=== PATIENT | female | born 1965 | race Caucasian/White ===

== ENCOUNTER → 2016-06-23 | Outpatient (CLI) | payer OTHER ==
[~2016-06-23] MED LIST: AMBIEN 5MG TABLE5 MG PO; BETAMETHASONE DIPROPIONATE; CELEXA40 MG PO; CLARITIN 1010 MG/TAB PO; CLONAZEPAM0.5 MG PO; ESCITALOPRAM; ESTRADIOL1 MG PO; IBUPROFEN200 M1 PO; LISINOPRIL5 MG PO; METHIMAZOLE10 MG PO; MULTIPLE VITAMI1 TAB PO; NAPROSYN500 MG PO; NORCO 325 MG-7.1 TAB PO; PRINIVIL20 MG PO; REQUIP 0.5MG0.5 MG PO; allergy med
== END ==
LOC: MC.RAD 16:49
DX: Z12.31 Encounter for screening mammogram for malignant neoplasm of breast (principal); D24.2 Benign neoplasm of left breast; D24.1 Benign neoplasm of right breast

== ENCOUNTER → 2017-12-03 | Outpatient (REF) | LOC: ZLAB.WCH 11:18 | DX: Z01.89 Encounter for other specified special examinations (principal) ==

== ENCOUNTER 2019-02-02 11:20 | Emergency (ER) | payer BC ==
[~2019-02-02] VITALS: Ht 160 cm; Wt 115.5 kg
[2019-02-02 11:29] VITALS: TEMP 97.5
[2019-02-02] MEDS ORDERED: COSENTYX P150 MG/1 M SQ (12:22)
[2019-02-02] MEDS ORDERED: LYRICA 150MG C150 MG PO (12:23)
[2019-02-02] MEDS ORDERED: CYMBALTA 30MG30 MG PO (12:25)
[2019-02-02 12:54] LABS: BASO # 0.1 (0.0-0.2); BASO % 0.5 % (0.0-2.0); EOS # 0.4 (0.0-0.7); EOS % 3.5 % (0-4.0); GRAN # 6.8 (1.4-6.5); GRAN % 66.8 % (42.2-75.2); HEMATOCRIT 40.5 % (37.0-47.0); HEMOGLOBIN 12.7 g/dl (12.5-16.0); MEAN CELL VOLUME 89 fl (80.0-100.0); MEAN CORPUSCULAR HEMOGLOBIN 28 pg (27.0-31.0); MEAN CORPUSCULAR HGB CONC 31 g/dl (33.0-37.0); MEAN PLATELET VOLUME 9.8 fl (7.4-10.4); MONO # 0.8 (0.1-0.6); MONO % 8.3 % (1.7-9.3); PLATELET COUNT 284 K/mm3 (130-400); RED BLOOD COUNT 4.57 M/mm3 (4.10-5.30); REDCELL DISTRIBUTION WIDTH-CV 14.2 % (11.5-14.5)
[2019-02-02 13:04] LABS: BLOOD UREA NITROGEN 16 mg/dL (7-17); CREATININE, serum 0.74 (0.52-1.25); GLUCOSE 100 mg/dL (74-106)
[2019-02-02 13:05] LABS: ACETAMINOPHEN < 10 ug/mL (10-30); ALANINE AMINOTRANSFERASE 41 U/L (9-52); ALBUMIN 3.9 gm/dL (3.5-5.0); ALKALINE PHOSPHATASE 103 U/L (50-136); ANION GAP 7 mmol/L (7-16); AST,SGOT 44 U/L (15-37); BILIRUBIN,TOTAL 0.4 mg/dL (0.0-1.0); CALCIUM 9.5 mg/dL (8.4-10.2); CARBON DIOXIDE 31 mmol/L (22-30); CHLORIDE 105 mmol/L (98-107); POTASSIUM 4.4 mmol/L (3.4-5.0); SALICYLATE < 1.0 mg/dL; SODIUM 143 mmol/L (137-145); TOTAL PROTEIN 7.8 gm/dL (6.4-8.2)
[2019-02-02 13:35] LABS: TSH w REFLEX 0.445 uIU/mL (0.465-4.680)
[2019-02-02 15:10] LABS: COLLECTION METHOD CLEAN CATCH
[2019-02-02 15:26] LABS: TRICYCLIC ANTIDEPRESS URINE NEGATIVE
[2019-02-02 15:55] LABS: MUCOUS Present /lpf; PH 6 (5-8); URINE APPEARANCE Cloudy; URINE BACTERIA Rare /hpf; URINE BILIRUBIN Negative (NEGATIVE); URINE BLOOD Negative (NEGATIVE); URINE COLOR Yellow; URINE GLUCOSE Negative (NEGATIVE); URINE KETONE Negative (NEGATIVE); URINE LEUKOCYTE ESTERASE 2+ (NEGATIVE); URINE NITRATE Negative (NEGATIVE); URINE PROTEIN(semi-quant) 1+ (NEGATIVE); URINE UROBILINOGEN Negative (NEGATIVE)
[2019-02-02 19:10] VITALS: BP 142/66; PULSE 73
== END 2019-02-02 19:10 | disposition home or self-care (01) ==
LOC: COL.ER 11:20
PROVIDERS: Emergency Medicine
DX: R41.0 Disorientation, unspecified (principal); R45.851 Suicidal ideations

== ENCOUNTER 2020-04-28 16:45 | Inpatient (IN) | payer BC ==
[~2020-04-28] VITALS: Ht 160 cm; Wt 112.3 kg
[~2020-04-28 16:45] MED LIST changes: +COSENTYX P150 MG/1 M SQ; +CYMBALTA 30MG30 MG PO; +LYRICA 150MG C150 MG PO
[2020-04-28] MEDS ORDERED: ALBUTEROL0.83 MG/ML IH (17:46)
[2020-04-28 18:06] LABS: ARTERIAL BLD GAS O2 SATURATION 92.1 % (92-100); ARTERIAL BLD GAS TCO2 CT 24.9; ARTERIAL BLOOD GAS BASE EXCESS 0.6 (-2-2); ARTERIAL BLOOD GAS HCO3 23.9 meq/L (22-26); ARTERIAL BLOOD GAS PCO2 33.8 mmHg (35-45); ARTERIAL BLOOD GAS PO2 64.1 mmHg (80-100); ARTERIAL BLOOD GAS pH 7.47 (7.35-7.45)
[2020-04-28 18:45] LABS: HEMATOCRIT 39.1 % (37.0-47.0); HEMOGLOBIN 12.1 g/dl (12.5-16.0); MEAN CELL VOLUME 83 fl (80.0-100.0); MEAN CORPUSCULAR HEMOGLOBIN 26 pg (27.0-31.0); MEAN CORPUSCULAR HGB CONC 31 g/dl (33.0-37.0); MEAN PLATELET VOLUME 10.5 fl (7.4-10.4); PLATELET COUNT 211 K/mm3 (130-400); RED BLOOD COUNT 4.72 M/mm3 (4.10-5.30); REDCELL DISTRIBUTION WIDTH-CV 15.4 % (11.5-14.5)
[2020-04-28 18:53] LABS: ALBUMIN 4.2 gm/dL (3.5-5.0); BILIRUBIN,TOTAL 0.3 mg/dL (0.0-1.0); CREATININE, serum 0.85 (0.52-1.25); POTASSIUM 4.1 mmol/L (3.4-5.0); TOTAL PROTEIN 8.6 gm/dL (6.4-8.2)
[2020-04-28 19:18] LABS: BAND 7 % (0-10); NEUTROPHILS 73 % (42.0-75.2)
[2020-04-28 19:19] LABS: LYMPHOCYTE 13 % (20.0-51.0); MICROCYTOSIS 1+; PLATELET ESTIMATE NORMAL (NORMAL)
[2020-04-28] MEDS ORDERED: XALATAN EYE DROPS OU (20:47)
[2020-04-28] MEDS ORDERED: PRIL40 PO (20:48)
[2020-04-28] MEDS ORDERED: CYMBALTA 30MG30 MG PO (20:51)
[2020-04-28] MEDS ORDERED: TALTZ AUTO80 MG/1 ML SQ (20:53)
[2020-04-28] MEDS ORDERED: OTEZLA PO (20:54)
[2020-04-29] VITALS (8 sets, daily range): BP systolic 132–168; BP diastolic 70–80; PULSE 60–74; TEMP 96.9–98.8
[2020-04-30 05:21] VITALS: BP 145/85; PULSE 62; TEMP 98.3
[2020-04-30 07:16] LABS: HEMOGLOBIN 11.2 g/dl (12.5-16.0); MEAN CELL VOLUME 83 fl (80.0-100.0); MEAN CORPUSCULAR HEMOGLOBIN 26 pg (27.0-31.0); MEAN CORPUSCULAR HGB CONC 31 g/dl (33.0-37.0); MEAN PLATELET VOLUME 10.8 fl (7.4-10.4); PLATELET COUNT 143 K/mm3 (130-400); RED BLOOD COUNT 4.32 M/mm3 (4.10-5.30); REDCELL DISTRIBUTION WIDTH-CV 15.1 % (11.5-14.5)
[2020-04-30 07:25] LABS: CREATININE, serum 0.78 (0.52-1.25); HEMATOCRIT 35.8 % (37.0-47.0); POTASSIUM 4.3 mmol/L (3.4-5.0)
[2020-04-30 07:51] LABS: BAND 28 % (0-10); LYMPHOCYTE 8 % (20.0-51.0); NEUTROPHILS 61 % (42.0-75.2); PLATELET ESTIMATE NORMAL (NORMAL)
[2020-04-30 07:52] LABS: ANISOCYTOSIS 1+; HYPOCHROMIA 1+
[2020-04-30 09:19] VITALS: BP 142/82; PULSE 75; TEMP 98.4
[2020-04-30] MEDS ORDERED: PROAIR HFA0.09 MG/AC IH (12:39)
[2020-04-30] MEDS ORDERED: DECADRON6 MG PO (12:44)
[2020-04-30 12:58] VITALS: BP 137/79; PULSE 67; TEMP 98.1
== END 2020-04-30 17:15 | disposition home or self-care (01) | DRG 177 ==
LOC: COL.ER 16:45 → PEDS 20:03 → COL.ER 20:03 → PEDS 20:03
PROVIDERS: Emergency Medicine; Physician Assistant; ADMIT Student in an Organized Health Care Education/Training Program
DX: U07.1 COVID-19 (principal); J96.01 Acute respiratory failure with hypoxia; R65.10 Systemic inflammatory response syndrome (SIRS) of non-infectious origin without acute organ dysfunction; R19.7 Diarrhea, unspecified; R74.01 Elevation of levels of liver transaminase levels; I10 Essential (primary) hypertension; L40.50 Arthropathic psoriasis, unspecified; D64.9 Anemia, unspecified; E66.01 Morbid (severe) obesity due to excess calories; J35.1 Hypertrophy of tonsils; G25.81 Restless legs syndrome; F32.9 Major depressive disorder, single episode, unspecified
CPT/HCPCS: 99223-AI; 99233-AI; 99239; J0456; J0696; J1100; J1650; J1815; J1885; J2405; J7030; J7050; J8540

== ENCOUNTER 2023-08-05 09:39 | Inpatient (IN) | payer BC ==
[2023-08-05] VITALS (7 sets, daily range): BP systolic 104–165; BP diastolic 59–73; PULSE 101–108; TEMP 98.5–101.7
[~2023-08-05] VITALS: Ht 157.5 cm; Wt 118.4 kg
[~2023-08-05 09:39] MED LIST changes: +00186-0370-20 IH; +ALBUTEROL0.83 MG/ML IH; +ASPIRIN E.C. 8181 MG PO; +BUSPAR5 MG PO; +CALCIPOTRIENE0.0051 TP; +DECADRON6 MG PO; +DOXYCYCLINE 10100 MG PO; +FLONASEALLERGY NS; +GLUCOPHAGE500 MG/TAB PO; +IRON TABLETS325 MG PO; +NORCO 325 MG-51 TAB PO; +NORVASC 5MG5 MG/TAB PO; +OTEZLA PO; +PREDNISONE20 MG PO; +PRIL40 PO; +PRINIVIL40 MG PO; +PROAIR HFA0.09 MG/AC IH; +SINGULAIR 110 MG/TAB PO; +SPIRIVA RESPIMAT4 GM IH; +TALTZ AUTO80 MG/1 ML SQ; +TEMOVATE50TS TOP; +TREMFYA100 MG/1 M SQ; +TRIAMCINOLONE AC0.13 TOP; +XALATAN EYE DROPS OU
[2023-08-05] MEDS ORDERED: NS 1,000 ML IV ONE ×3 (10:00→11:15)
[2023-08-05 10:27] LABS: COLLECTION METHOD CLEAN CATCH
[2023-08-05 10:35] LABS: URINE APPEARANCE CLOUDY (CLEAR/HAZY); URINE BLOOD NEGATIVE (NEGATIVE); URINE COLOR Dark Yellow (YELLOW); URINE GLUCOSE NEGATIVE (NEGATIVE); URINE KETONE NEGATIVE (NEGATIVE); URINE NITRATE NEGATIVE (NEGATIVE); URINE PROTEIN(semi-quant) 1+ (NEGATIVE)
[2023-08-05 10:39] LABS: HEMOGLOBIN 10.5 g/dl (12.5-16.0); MEAN CELL VOLUME 91 fl (80.0-100.0); MEAN CORPUSCULAR HEMOGLOBIN 29 pg (27-31); MEAN CORPUSCULAR HGB CONC 32 g/dl (33.0-37.0); MEAN PLATELET VOLUME 10.4 fl (7.4-10.4); PLATELET COUNT 169 K/mm3 (130-400); RED BLOOD COUNT 3.59 M/mm3 (4.10-5.30); REDCELL DISTRIBUTION WIDTH-CV 17.2 % (11.5-14.5)
[2023-08-05 10:40] LABS: HEMATOCRIT 32.7 % (37.0-47.0)
[2023-08-05] MEDS ORDERED: Ondansetron 4 MG/2 ML VIAL IV ONE (10:45)
[2023-08-05] MEDS ORDERED: fentaNYL 50 MCG/ML 2 ML VIAL IV ONE (10:45)
[2023-08-05 10:52] LABS: MUCOUS PRESENT (NOT PRESENT); URINE BACTERIA MODERATE /hpf (NONE SEEN); URINE RBC 0-2 /hpf (0-2)
[2023-08-05 10:58] LABS: ALBUMIN 3.1 gm/dL (3.5-5.0); BILIRUBIN,TOTAL 0.3 mg/dL (0.2-1.2); CALCIUM 9.3 mg/dL (8.4-10.2); CREATININE, serum 0.81 mg/dL (0.57-1.11); POTASSIUM 3.4 mmol/L (3.5-4.5)
[2023-08-05] MEDS ORDERED: NS 250 ML IV ONE (11:15)
[2023-08-05] MEDS ORDERED: SEMAGLUTIDE (11:55)
[2023-08-05] MEDS ORDERED: [UNRECOGNIZED DRUG - OTHER] (11:55)
[2023-08-05 11:57] LABS: ANISOCYTOSIS 1+; BAND 8 % (0-10); BASOPHIL 6 % (0-2); EOSINOPHIL 8 % (0-4); HYPOCHROMIA 1+; LYMPHOCYTE 54 % (20.0-51.0); NEUTROPHILS 6 % (42.0-75.2); NUCLEATED RED BLOOD CELL 2 (0-6); PLATELET ESTIMATE NORMAL (NORMAL)
[2023-08-05] MEDS ORDERED: NS 1,000 ML IV SCH ×2 (13:17→14:00)
[2023-08-05] MEDS ORDERED: Pantoprazole 40 MG in NS 10 ML IV SCH (13:25)
[2023-08-05] MEDS ORDERED: Ondansetron 4 MG/2 ML VIAL IV PRN (13:30)
[2023-08-05] MEDS ORDERED: Acetaminophen 325 MG TAB PO PRN (13:30)
[2023-08-05] MEDS ORDERED: Ferrous Sulfate 325 MG TAB PO SCH (13:30)
[2023-08-05] MEDS ORDERED: Polyethylene Glycol 3350 17 GM PDS PO PRN (13:30)
[2023-08-05] MEDS ORDERED: Vancomycin 1.75 GM,Special Dose/Pharmacy Prepared 1.75 GM in NS 500 ML IV SCH (14:00)
[2023-08-05] MEDS ORDERED: Vancomycin 2 GM,Special Dose/Pharmacy Prepared 2 GM in NS 500 ML IV ONE (14:30)
[2023-08-05] MEDS ORDERED: ZOFRAN8 MG PO (14:57)
[2023-08-05] MEDS ORDERED: NEURONTIN300 MG/CAP PO (14:57)
[2023-08-05] MEDS ORDERED: ZYLOPRIM 300MG300 MG PO (14:58)
[2023-08-05] MEDS ORDERED: ZOVIRAX400 MG PO (14:58)
[2023-08-05] MEDS ORDERED: ROXICODONE 55 MG/TAB PO (15:00)
[2023-08-05] MEDS ORDERED: Dextrose 50% Water 25 GM/50 ML SYRINGE IV PRN (15:15)
[2023-08-05] MEDS ORDERED: Dextrose (Glucose) 15 GM (4 x 3.75 GM) Chewable TABLET PACK PO PRN (15:15)
[2023-08-05] MEDS ORDERED: Glucagon 1 MG VIAL IM PRN (15:15)
--- NOTE | 2023-08-05 15:17 | NUR ---
PATIENT ADMITTED TO MEDICAL UNIT AT THIS TIME. ADMISSION INTAKE AND ASSESSMENT COMPLETED. MED REC, PHARMACY, AND ALLERGY LIST UPDATED. PATIENT ORIENTED TO ROOM. IVF INFUSING. PATIENT COMPLAINS OF MILD STERNAL PAIN. DENIES ANY NEEDS AT THIS TIME. WILL CONTINUE TO MONITOR.
[2023-08-05] MEDS ORDERED: Insulin Aspart (NovoLOG) SQ SCH (17:00)
[2023-08-05] MEDS ORDERED: Formoterol 20 MCG,Budesonide 0.5 MG IH SCH (19:00)
[2023-08-05] MEDS ORDERED: oxyCODONE 5 MG TAB PO PRN (20:30)
[2023-08-05] MEDS ORDERED: Montelukast 10 MG TAB PO SCH (21:00)
[2023-08-05] MEDS ORDERED: Pregabalin 150 MG CAP PO SCH (21:00)
[2023-08-05] MEDS ORDERED: busPIRone 5 MG TAB PO SCH (21:00)
[2023-08-05] MEDS ORDERED: Docusate Sodium 100 MG CAP PO SCH (21:00)
[2023-08-05] MEDS ORDERED: Latanoprost 0.005% Ophth Soln 2.5 ML BOTTLE OP SCH (21:00)
[2023-08-05] MEDS ORDERED: DULoxetine 30 MG CAP PO SCH (21:00)
[2023-08-05] MEDS ORDERED: rOPINIRole 0.5 MG TAB PO SCH (21:00)
--- NOTE | 2023-08-05 23:58 | NUR ---
PT ALERT AND ORIENTED, AND FMAILY AT THE BEDSIDE. C/O DRYNESS OF MOUTH, MOUTH MOISTERIZER GIVEN WITH INSTANT RELIEF. VERY PLEASANT WOMAN AND GREAT HISTORIAN, PER REPORT HASNT TAKEN ANY OF HER DAYTIME MEDS R/T N/V, THIS HAS SUBSIDED SINCE ADMISSION TO THE FLOOR. VSS, BP RUNNING SOFT. ASSESSED, RT CALLED TO BLEED IN O2 TO CPAP R/T INSUFFICIENT OXYGENATION. NOW ON 3L BLEED IN SAT AT 94%. DEV TEMP AROUND 0000, TYLENOL GIVEN.WILL REASSESS IN AN HOUR. INT TO L WRIST PATENT. ON NEUTROPENIC PRECAUTUIONS. NON ACCESSIBLE PORTACATH TO LEFT CHEST. ON 2 LITERS NC, BASELINE ROOM AIR. NO FURTHER NEED EXPRESSED AT THIS TIME. CALL LIGHT WITHIN REACH.
[2023-08-06] VITALS (11 sets, daily range): BP systolic 100–151; BP diastolic 59–75; PULSE 86–112; TEMP 98.2–100.9
--- NOTE | 2023-08-06 00:07 | NUR ---
PT PLACED ON 3L BLEED IN WITH HOME CPAP.
[2023-08-06] MEDS ORDERED: Vancomycin 1.5 GM,Special Dose/Pharmacy Prepared 1.5 GM in NS 250 ML IV SCH (02:30)
[2023-08-06 06:43] LABS: MEAN CELL VOLUME 92 fl (80.0-100.0); MEAN CORPUSCULAR HGB CONC 31 g/dl (33.0-37.0); MEAN PLATELET VOLUME 10.1 fl (7.4-10.4); PLATELET COUNT 135 K/mm3 (130-400); RED BLOOD COUNT 3.28 M/mm3 (4.10-5.30); REDCELL DISTRIBUTION WIDTH-CV 17.3 % (11.5-14.5)
[2023-08-06 06:55] LABS: HEMOGLOBIN 9.4 g/dl (12.5-16.0); MEAN CORPUSCULAR HEMOGLOBIN 29 pg (27-31)
[2023-08-06 07:01] LABS: ALBUMIN 2.6 gm/dL (3.5-5.0); BILIRUBIN,TOTAL 0.4 mg/dL (0.2-1.2); CALCIUM 8.4 mg/dL (8.4-10.2); CREATININE, serum 0.71 mg/dL (0.57-1.11); POTASSIUM 3.3 mmol/L (3.5-4.5); TOTAL PROTEIN 5.3 gm/dL (6.2-8.1)
--- NOTE | 2023-08-06 08:00 | NUR ---
Patient sleeping in bed, easily awakened with verbal command. A&Ox3. VSS 2L NC O2. IV CDI. Reports nausea, medication given as requested. Call light within reach.
[2023-08-06 08:22] LABS: ANISOCYTOSIS 1+; BAND 38 % (0-10); EOSINOPHIL 2 % (0-4); LYMPHOCYTE 11 % (20.0-51.0); METAMYELOCYTE 2 % (0-0); NEUTROPHILS 35 % (42.0-75.2); PLATELET ESTIMATE NORMAL (NORMAL)
[2023-08-06] MEDS ORDERED: Potassium Bicarbonate/Citrate 20 MEQ Effervescent TAB PO SCH (08:26)
[2023-08-06] MEDS ORDERED: DULoxetine 60 MG CAP PO SCH (09:00)
[2023-08-06] MEDS ORDERED: Tiotropium 2.5 MCG Respimat MDI IH SCH (09:00)
[2023-08-06] MEDS ORDERED: Loratadine 10 MG TAB PO SCH (09:00)
[2023-08-06] MEDS ORDERED: Fluticasone Nasal 50 MCG/Spray 16 GM BOTTLE NS SCH (09:00)
--- NOTE | 2023-08-06 11:52 | NUR ---
SW met with patient to complete an intake. Patient shared that she was currently in chemo and verified that her PCP is Dr Hendrix and pharmacy of choice is [facility]. Patient informed SW that she resides in her home with spouse Flavio Tai ([phone]) and independent with ADLs and current DMEs is CPAP. Patient is anticiapting discharge back to her home. Discharge plan: tbd
--- NOTE | 2023-08-06 21:33 | NUR ---
PT ALERT AND ORIENTED X3. WAS C/O NAUSEA UPON ENTERING THE ROOM. HAS BEEN NAUSEOUS MOST OF THE DAY AND NOT ABLE TO EAT MUCH. SLIGHTLY PALE, FEBRILE. MEDICATED PER EMAR AND TO TREAT ELEVATED TEMP.ASSESSED, VSS. SITTING UP IN RECLINER. DOES NOT WANT ANYTHING ELSE TO EAT. CALL LIGHT WITHIN REACH. DENIES NEED FURTHER.
[2023-08-07] VITALS (13 sets, daily range): BP systolic 100–134; BP diastolic 67–78; PULSE 80–103; TEMP 98–100.3
[2023-08-07 06:43] LABS: HEMOGLOBIN 10.4 g/dl (12.5-16.0); MEAN CELL VOLUME 89 fl (80.0-100.0); MEAN CORPUSCULAR HEMOGLOBIN 29 pg (27-31); MEAN CORPUSCULAR HGB CONC 33 g/dl (33.0-37.0); MEAN PLATELET VOLUME 10.5 fl (7.4-10.4); PLATELET COUNT 147 K/mm3 (130-400); RED BLOOD COUNT 3.55 M/mm3 (4.10-5.30); REDCELL DISTRIBUTION WIDTH-CV 17.3 % (11.5-14.5)
[2023-08-07 06:50] LABS: HEMATOCRIT 31.7 % (37.0-47.0)
[2023-08-07 07:18] LABS: ALBUMIN 2.7 gm/dL (3.5-5.0); BILIRUBIN,TOTAL 0.4 mg/dL (0.2-1.2); CREATININE, serum 0.7 mg/dL (0.57-1.11); POTASSIUM 3.8 mmol/L (3.5-4.5); TOTAL PROTEIN 5.8 gm/dL (6.2-8.1)
[2023-08-07 07:48] LABS: ANISOCYTOSIS 1+; BAND 19 % (0-10); EOSINOPHIL 2 % (0-4); LYMPHOCYTE 7 % (20.0-51.0); NEUTROPHILS 59 % (42.0-75.2); PLATELET ESTIMATE NORMAL (NORMAL)
--- NOTE | 2023-08-07 10:20 | NUR ---
PT LAYING IN BED UPON ENTERING. ASSESSMENT DONE, MEDS GIVEN BY KOURTNEY STUDENT WITH INSTRUCTOR. PT REPORTS GENERALIZED BODY PAIN AND GIVEN PRN. PT ON 2L NASAL CANNULA, FINE CRACKLES HEARD TO RIGHT LOWER LOBE. BANDAID TO LEFT CHEST PORT FROM PREVIOUS ACCESS. PT DENIES NEEDS AT THIS TIME. BED IN LOWEST POSITION, CALL LIGHT IN REACH.
--- NOTE | 2023-08-07 12:40 | NUR ---
PVS HEARD PER NORMAN INSTRUCTOR. DR OTERO NOTIFIED, 12 LEAD AND TELEMETRY ORDERED. PT REPORTS NAUSEA AND GIVEN ZOFRAN. TYLENOL PULLED FOR 99.5 TEMP, PT WANTS TO WAIT ON THIS UNITL NAUSEA IMPROVES. PT DENIES NEEDS AT THIS TIME. BED IN LOWEST POSITION, CALL LIGHT IN REACH.
--- NOTE | 2023-08-07 19:00 | NUR ---
PATIENT RESTING IN BED WITH FAMILY MEMBER AT BEDSIDE WITH NO ACUTE DISTRESS NOTED. PATIENT ON 2 LITERS OF OXYGEN VIA NC. INT TO LEFT HAND WITH NO COMPLICATIONS NOTED. PATIENT DENIES ANY NEEDS AT THIS TIME. PATIENT CARE ASSUMED FROM LISA SWARTZ. BED IN LOW POSITION WITH WHEELS LOCKED WITH RAILS UP X3 AND CALL LIGHT WITHIN REACH.
[2023-08-07] MEDS ORDERED: Doxycycline Monohydrate 100 MG CAP PO SCH (21:00)
--- NOTE | 2023-08-07 21:30 | NUR ---
PATIENT RESTING IN BED WITH CPAP ON WITH TV OFF WITH NO FAMILY PRESENT WITH NO ACUTE DISTRESS NOTED. PATIENT ON 2 LITERS OF OXYGEN BLEEDED INTO CPAP. PATIENT C/O PAIN. PATIENT RATED PAIN 4-5 ON SCALE OF 0 TO 10. ROXICODONE GIVEN PER MD ORDER. PATIENT REQUESTED ICE AND WATER. BOTH GIVEN. ASSESSMENT AND MEDICATION ADMINISTRATION COMPLETED. PATIENT TOELRATED WELL. ALL NEEDS MET. BED IN LOW POSITION WITH WHEELS LOCKED WITH RAILS UP X3 AND CALL LIGHT WITHIN REACH.
[2023-08-08 00:30] VITALS: BP_SYST 134
[2023-08-08 03:39] VITALS: BP 102/69; PULSE 88; TEMP 98.8
[2023-08-08 04:05] VITALS: BP_SYST 102
[2023-08-08 06:42] LABS: HEMOGLOBIN 10.2 g/dl (12.5-16.0); MEAN CELL VOLUME 89 fl (80.0-100.0); MEAN CORPUSCULAR HEMOGLOBIN 29 pg (27-31); MEAN CORPUSCULAR HGB CONC 32 g/dl (33.0-37.0); MEAN PLATELET VOLUME 10.3 fl (7.4-10.4); PLATELET COUNT 162 K/mm3 (130-400); RED BLOOD COUNT 3.57 M/mm3 (4.10-5.30); REDCELL DISTRIBUTION WIDTH-CV 17.3 % (11.5-14.5)
[2023-08-08 06:50] LABS: HEMATOCRIT 31.7 % (37.0-47.0)
[2023-08-08 07:01] LABS: ALBUMIN 2.6 gm/dL (3.5-5.0); BILIRUBIN,TOTAL 0.3 mg/dL (0.2-1.2); CALCIUM 8.7 mg/dL (8.4-10.2); CREATININE, serum 0.75 mg/dL (0.57-1.11); POTASSIUM 3.6 mmol/L (3.5-4.5); TOTAL PROTEIN 5.8 gm/dL (6.2-8.1)
[2023-08-08 07:29] LABS: ANISOCYTOSIS 1+; BAND 23 % (0-10); EOSINOPHIL 1 % (0-4); LYMPHOCYTE 2 % (20.0-51.0); METAMYELOCYTE 1 % (0-0); NEUTROPHILS 63 % (42.0-75.2); PLATELET ESTIMATE NORMAL (NORMAL)
[2023-08-08 07:30] VITALS: BP 116/75; PULSE 98; TEMP 98.6
[2023-08-08 08:30] VITALS: BP_SYST 116
--- NOTE | 2023-08-08 10:06 | NUR ---
Patient alert and oriented x4. Shift assessment complete. Reports pain 4/10, PRN Tylenol administered and ineffective. PRN Roxicodone administered. IV site to left hand noted to have redness and patient reports pain with flushes. Site discontinued and a new site initiated to right forearm with a 22g IV. Patient tolerating activity at baseline. Ate 50% of breakfast, reports this is the usual amount she can tolerate. Call light within reach, all needs met at this time.
[2023-08-08] MEDS ORDERED: LEVAQUIN 750MG750 M1 PO (10:21)
[2023-08-08] MEDS ORDERED: DOXYCYCLINE HY100 MG PO (10:22)
--- NOTE | 2023-08-08 10:58 | NUR ---
D: Initial vist: Industrial Tractor Driver stopped by room on rounds. Pt was sitting on the side of the bed, content. A: Pt is feeling better. Pt has a good support system at home and in the community. Right now no needs. Pt appreciated the visit. P: Industrial Tractor Driver informed pt that if she needed anything from the inclusion teacher area to let her nurse know. Industrial Tractor Driver will follow up as needed.
--- NOTE | 2023-08-08 12:27 | NUR ---
Discharge instructions discussed with patient including follow-up appointments, new/discontinued medications, and education packets. Patient verbalized understanding. IV discontinued to right forearm with no complications. Telemetry off. Patient escorted out by staff and family via wheelchair.
== END 2023-08-08 12:30 | disposition home or self-care (01) | DRG 871 ==
LOC: COL.ER 09:39 → MEDICAL 13:19
PROVIDERS: Personal Emergency Response Attendant; ADMIT Internal Medicine
DX: A41.9 Sepsis, unspecified organism (principal); J18.9 Pneumonia, unspecified organism; C85.90 Non-Hodgkin lymphoma, unspecified, unspecified site; E87.20 Acidosis, unspecified; Z68.42 Body mass index [BMI] 45.0-49.9, adult; I10 Essential (primary) hypertension; L40.9 Psoriasis, unspecified; E11.9 Type 2 diabetes mellitus without complications; D70.1 Agranulocytosis secondary to cancer chemotherapy; T45.1X5A Adverse effect of antineoplastic and immunosuppressive drugs, initial encounter; E87.6 Hypokalemia; G89.29 Other chronic pain; F32.A Depression, unspecified; Z20.822 Contact with and (suspected) exposure to COVID-19; G47.33 Obstructive sleep apnea (adult) (pediatric); E66.01 Morbid (severe) obesity due to excess calories; J45.909 Unspecified asthma, uncomplicated; E06.3 Autoimmune thyroiditis; Z88.0 Allergy status to penicillin; Z88.2 Allergy status to sulfonamides; Z88.8 Allergy status to other drugs, medicaments and biological substances; Z90.710 Acquired absence of both cervix and uterus; Z90.49 Acquired absence of other specified parts of digestive tract; Z79.899 Other long term (current) drug therapy; Z79.82 Long term (current) use of aspirin; Z99.89 Dependence on other enabling machines and devices; Z23 Encounter for immunization
CPT/HCPCS: A9270; C9113; J0780; J1447; J1650; J1815; J1956; J2405; J3010; J3370; J7030; J7040; J7050

== ENCOUNTER 2023-08-09 01:30 | Inpatient (IN) | payer BC ==
[~2023-08-09] VITALS: Ht 160 cm; Wt 114.8 kg
[2023-08-09] VITALS (10 sets, daily range): BP systolic 110–1110; BP diastolic 63–86; PULSE 95–118; TEMP 97.4–98.6
[~2023-08-09 01:30] MED LIST changes: +DOXYCYCLINE HY100 MG PO; +LEVAQUIN 750MG750 M1 PO; +NEURONTIN300 MG/CAP PO; +ROXICODONE 55 MG/TAB PO; +SEMAGLUTIDE; +ZOFRAN8 MG PO; +ZOVIRAX400 MG PO; +ZYLOPRIM 300MG300 MG PO; +[UNRECOGNIZED DRUG - OTHER]
[2023-08-09] MEDS ORDERED: methylPREDNISolone Sod Succ 125 MG/2 ML VIAL IV ONE (01:45)
[2023-08-09 01:57] LABS: MEAN CELL VOLUME 93 fl (80.0-100.0); MEAN CORPUSCULAR HGB CONC 31 g/dl (33.0-37.0); MEAN PLATELET VOLUME 10.8 fl (7.4-10.4); PLATELET COUNT 188 K/mm3 (130-400); RED BLOOD COUNT 3.42 M/mm3 (4.10-5.30); REDCELL DISTRIBUTION WIDTH-CV 17.7 % (11.5-14.5)
[2023-08-09 01:58] LABS: HEMATOCRIT 31.9 % (37.0-47.0); HEMOGLOBIN 9.9 g/dl (12.5-16.0); MEAN CORPUSCULAR HEMOGLOBIN 29 pg (27-31)
[2023-08-09 02:03] LABS: COLLECTION METHOD CLEAN CATCH
[2023-08-09 02:20] LABS: ALANINE AMINOTRANSFERASE 29 U/L (0-55); ALBUMIN 2.5 gm/dL (3.5-5.0); ALKALINE PHOSPHATASE 100 U/L (40-150); ANION GAP 12 mmol/L (7-16); AST,SGOT 31 U/L (5-34); BILIRUBIN,TOTAL < 0.5 mg/dL (0.2-1.2); BLOOD UREA NITROGEN 6 mg/dL (10-20); CALCIUM 9.1 mg/dL (8.4-10.2); CARBON DIOXIDE 21 mmol/L (22-29); CHLORIDE 104 mmol/L (98-107); CREATINE KINASE 156 U/L (29-168); CREATININE, serum 0.81 mg/dL (0.57-1.11); GLUCOSE 132 mg/dL (70-99); POTASSIUM 3.8 mmol/L (3.5-4.5); SODIUM 137 mmol/L (136-145); TOTAL PROTEIN 6.1 gm/dL (6.2-8.1)
[2023-08-09 02:25] LABS: ANISOCYTOSIS 1+; BAND 8 % (0-10); EOSINOPHIL 2 % (0-4); HYPOCHROMIA 2+; LYMPHOCYTE 6 % (20.0-51.0); METAMYELOCYTE 1 % (0-0); NEUTROPHILS 72 % (42.0-75.2); PLATELET ESTIMATE NORMAL (NORMAL); STOMATOCYTE 1+
[2023-08-09 02:37] LABS: PH 5.5 (5.0-8.5); URINE APPEARANCE CLEAR (CLEAR/HAZY); URINE BLOOD NEGATIVE (NEGATIVE); URINE COLOR YELLOW (YELLOW); URINE GLUCOSE NEGATIVE (NEGATIVE); URINE KETONE 2+ (NEGATIVE); URINE NITRATE NEGATIVE (NEGATIVE); URINE PROTEIN(semi-quant) TRACE (NEGATIVE)
[2023-08-09] MEDS ORDERED: Albuterol/Ipratropium 3 MG-0.5 MG/3 ML Neb Soln IH PRN (03:00)
--- NOTE | 2023-08-09 03:55 | NUR ---
Admitted to medical unit from ER w/fever/vomiting. Was just discharged yesterday at 1300 from this floor-{PNA] states she went home and mostly slept and did not feel like eating, when she woke up had a fever of 102.6 states the . Was vomiting, SOB, so called EMS and she came back in to hospital. VSS at this time, temp 99, o2 at 2L/nc, states pain 3/10 just some aches from fibromyalgia. Guillen with clear yellow urine, tele on. Echo in am. Pt states she feels weak-- will make a fall risk-- bed alarm on.
--- NOTE | 2023-08-09 04:27 | NUR ---
Vancomycin Initial Dosing Pharmacy Note Ordering provider: Jacqui Coburn E., MD Indication/duration: Pneumonia x 7 days Relevant comorbidities: [facility] LABS: WBC = 11.3, SCr = 0.81 Recommendation: Will draw troughs and follow levels. Loading dose: 2 grams Maintenance dose: 1.5 grams every 12 hours Trough goal: 15-20 ug/mL
--- NOTE | 2023-08-09 06:00 | NUR ---
Up to bathroom with one assist, did have a bowel movement, states is feeling better- Getting her loading dose of Vancomycin IV at this time-
[2023-08-09] MEDS ORDERED: Albuterol/Ipratropium 3 MG-0.5 MG/3 ML Neb Soln IH SCH (08:00)
[2023-08-09] MEDS ORDERED: Glucagon 1 MG VIAL IM PRN (08:30)
[2023-08-09] MEDS ORDERED: Dextrose 50% Water 25 GM/50 ML SYRINGE IV PRN (08:30)
[2023-08-09] MEDS ORDERED: Dextrose (Glucose) 15 GM (4 x 3.75 GM) Chewable TABLET PACK PO PRN (08:30)
[2023-08-09] MEDS ORDERED: LR 1,000 ML IV SCH (08:30)
[2023-08-09] MEDS ORDERED: oxyCODONE 5 MG TAB PO PRN (08:45)
[2023-08-09] MEDS ORDERED: Fluticasone Nasal 50 MCG/Spray 16 GM BOTTLE NS SCH (09:00)
[2023-08-09] MEDS ORDERED: Pregabalin 150 MG CAP PO SCH (09:00)
[2023-08-09] MEDS ORDERED: Loratadine 10 MG TAB PO SCH (09:00)
[2023-08-09] MEDS ORDERED: Allopurinol 300 MG TAB PO SCH (09:00)
[2023-08-09] MEDS ORDERED: busPIRone 5 MG TAB PO SCH (09:00)
[2023-08-09] MEDS ORDERED: DULoxetine 60 MG CAP PO SCH (09:00)
--- NOTE | 2023-08-09 09:05 | NUR ---
spoke to Alecia with CT, reports can do scans around 11am.
--- NOTE | 2023-08-09 09:15 | NUR ---
pt a&ox3 resting in bed, at bedside. assissted pt to bathroom, gait steady. glaser to dd w clear yellow urine output. vss and tele in place. pt on 2L nasal cannula. pt reports overall weakness but not able to pinpoint an exact pain. compazine given per emar before oral meds to be given. fluids infusing into right ac at 75ml/hr. left chest port not accessed. fall precautions in place. no needs at this time. call light in reach.
--- NOTE | 2023-08-09 10:44 | NUR ---
glaser catheter removed by [facility] nursing secretary. pt off floor for CT scan.
[2023-08-09] MEDS ORDERED: Iohexol 300 - 100 ML VIAL IV ONE (11:01)
[2023-08-09] MEDS ORDERED: NS 100 ML IV SCH (11:02)
[2023-08-09] MEDS ORDERED: Ferrous Sulfate 325 MG TAB PO SCH (12:00)
[2023-08-09] MEDS ORDERED: Insulin Aspart (NovoLOG) SQ SCH (12:00)
--- NOTE | 2023-08-09 16:34 | NUR ---
clean up worker and BATSHEVA student met with patient to discuss discharge planning. Patient lives in [place] with her , Flavio, P# [phone]. PCP is Dr. Hendrix, Pharmacy is [facility]. No issues affording medications. Patient wanted to establish a DPOA-HC, SW assisted patient with completing the form. Patient signed, SW and BATSHEVA student witnessed signature. BATSHEVA Student made copies, placed a copy in chart, provided original and copies to patient. Patient has a cane and CPAP, reports to be independent with ADLS. Flavio transports her to appointments but she is able to drive short distances. BATSHEVA presented medicare.gov list of options for home health. BATSHEVA discussed [facility] options as well but reported patient would be unable to have chemo during the time that she is receiving therapy at [facility] or [facility]. Patient and her stated they would prefer she return home with home health as she wants to continue chemo. SW will follow up with choice. Discharge plan: Home with Home Health
[2023-08-09] MEDS ORDERED: VANCOMYCIN IV SCH (18:00)
[2023-08-09] MEDS ORDERED: Vancomycin 1.5 GM,Special Dose/Pharmacy Prepared 1.5 GM in NS 250 ML IV SCH (18:00)
[2023-08-09] MEDS ORDERED: NS IV SCH (18:00)
[2023-08-09] MEDS ORDERED: [UNRECOGNIZED DRUG - OTHER] IV SCH (18:00)
--- NOTE | 2023-08-09 18:50 | NUR ---
PATIENT RESTING IN BED LYING ON LEFT SIDE WITH TV ON WITH AT BEDSIDE WITH NO ACUTE DISTRESS NOTED. PATIENT ON ROOM AIR. INT TO RIGHT AC INTACT WITH VANCOMYCIN INFUSING WITH NO COMPLICATIONS NOTED. PATIENT DENIES ANY NEEDS AT THIS TIME. PATIENT CARE ASSUMED FROM RHONA SWARTZ. BED IN LOW POSITION WITH WHEELS LOCKED WITH RAILS UP X3 AND CALL LIGHT WITHIN REACH.
[2023-08-09] MEDS ORDERED: Formoterol 20 MCG,Budesonide 0.5 MG IH SCH (19:00)
--- NOTE | 2023-08-09 20:40 | NUR ---
PATIENT RESTING IN BED WITH TV ON WITH NO FAMILY PRESENT AT THIS TIME WITH NO ACUTE DISTRESS NOTED. PATIENT ON ROOM AIR. LR INFUSING INTO RIGHT AC WITH NO COMPLICATIONS NOTED. ASSESSMENT AND MEDICATION ADMINISTRATION COMPLETED AT THIS TIME. PATIENT TOLERATED WELL. PATIENT REQUESTED ICE AND WAS GIVEN. ALL NEEDS MET. BED IN LOW POSITION WITH WHEELS LOCKED WITH RAILS UP X3 AND CALL LIGHT WITHIN REACH.
[2023-08-09] MEDS ORDERED: rOPINIRole 0.5 MG TAB PO SCH (21:00)
[2023-08-09] MEDS ORDERED: Latanoprost 0.005% Ophth Soln 2.5 ML BOTTLE OP SCH (21:00)
[2023-08-09] MEDS ORDERED: Montelukast 10 MG TAB PO SCH (21:00)
[2023-08-09] MEDS ORDERED: LEVOFLOXACIN 750 MG/150 ML IV SCH (21:00)
[2023-08-09] MEDS ORDERED: DULoxetine 30 MG CAP PO SCH (21:00)
[2023-08-10] VITALS (12 sets, daily range): BP systolic 106–136; BP diastolic 61–74; PULSE 91–106; TEMP 97.9–99.7
[2023-08-10] MEDS ORDERED: Omeprazole 40 MG **** subs to Pantoprazole 40 MG PO SCH (07:00)
--- NOTE | 2023-08-10 10:07 | NUR ---
Patient alert and oriented x4. Shift assessment complete. Patient's activity at baseline, stable on room air. LR infusing at 75ml/hr through right AC. Edema noted to bilateral arms/hands. +3 pitting edema noted to bilateral legs. Denies increase in pain at this time. No complaints of nausea this morning. Call light within reach, all needs met at this time.
[2023-08-10 10:40] LABS: MEAN CELL VOLUME 92 fl (80.0-100.0); MEAN CORPUSCULAR HGB CONC 32 g/dl (33.0-37.0); MEAN PLATELET VOLUME 10.3 fl (7.4-10.4); PLATELET COUNT 273 K/mm3 (130-400); RED BLOOD COUNT 3.31 M/mm3 (4.10-5.30); REDCELL DISTRIBUTION WIDTH-CV 17.8 % (11.5-14.5)
[2023-08-10 10:43] LABS: HEMATOCRIT 30.3 % (37.0-47.0); HEMOGLOBIN 9.6 g/dl (12.5-16.0); MEAN CORPUSCULAR HEMOGLOBIN 29 pg (27-31)
--- NOTE | 2023-08-10 10:49 | NUR ---
woolen mill utility worker followed up with patient regarding home health. Patient reports she would like home health as long as her insurance would cover cost. SW asked for preference, patient is still reviewing options. SW will follow up. Discharge plan: Home with home health
[2023-08-10 10:52] LABS: CALCIUM 9.3 mg/dL (8.4-10.2); CREATININE, serum 0.81 mg/dL (0.57-1.11); POTASSIUM 3.4 mmol/L (3.5-4.5)
[2023-08-10 11:08] LABS: BAND 4 % (0-10); LYMPHOCYTE 6 % (20.0-51.0); NEUTROPHILS 89 % (42.0-75.2); ROULEAUX 1+
[2023-08-10 11:13] LABS: HYPOCHROMIA 2+
[2023-08-10 11:14] LABS: ANISOCYTOSIS 1+; PLATELET ESTIMATE NORMAL (NORMAL)
[2023-08-10] MEDS ORDERED: Magnesium Oxide 400 MG TAB PO SCH (11:56)
[2023-08-10] MEDS ORDERED: Acetaminophen 325 MG TAB PO PRN (12:00)
[2023-08-10] MEDS ORDERED: Potassium Bicarbonate/Citrate 20 MEQ Effervescent TAB PO ONE (12:00)
[2023-08-10] MEDS ORDERED: Cefepime 1 G in Water For Injection,Sterile 10 ML IV SCH (12:00)
--- NOTE | 2023-08-10 13:30 | NUR ---
Maxipime administered via IV push over 3 min per orders through right AC, patient instructed to report any reaction symptoms. Patient called this nurse around 1320 stating she feels warmth to her skin and she has redness on her arm. Red blotchy areas noted to patient's right arm hot and painful to the touch. Redness noted to patient's cheeks as well as scalp. No redness noted to legs or left arm. Patient denies dyspnea or airway symptoms, denies itching. Dr. Pineda and LYLA Dockery student notified and updated about reaction. Dr. Pineda states he will discuss further treatment with pharmacy.
[2023-08-10] MEDS ORDERED: diphenhydrAMINE 50 MG CAP PO ONE (13:45)
[2023-08-10] MEDS ORDERED: predniSONE 20 MG TAB PO ONE (13:45)
--- NOTE | 2023-08-10 19:01 | NUR ---
Patient's reaction following Maxipime has improved, redness decreased and patient states she feels better. at bedside. Tolerating regular diet well. Stool sample collected and sent to lab per orders. Call light within reach, all needs met at this time.
[2023-08-10 19:33] LABS: CLOSTRIDIUM DIFF A/B NEG
--- NOTE | 2023-08-10 21:15 | NUR ---
Patient resting in bed. Assissted patient to bathroom and back to bed. Rates her pain at 3/10 in her back, denies any other pain or needs. Assessment complete. IV in right AC flushes easily with no complications. Call light and personal items in reach. Bed in low position.
[2023-08-11] VITALS (12 sets, daily range): BP systolic 118–150; BP diastolic 70–83; PULSE 85–103; TEMP 97.5–98.6
--- NOTE | 2023-08-11 06:00 | NUR ---
Patient resting in bed. Denies any pain or needs this morning. No changes over night. Call light and personal items in reach. Bed in low position.
[2023-08-11 07:41] LABS: MEAN CELL VOLUME 89 fl (80.0-100.0); MEAN CORPUSCULAR HGB CONC 32 g/dl (33.0-37.0); MEAN PLATELET VOLUME 10.6 fl (7.4-10.4); PLATELET COUNT 300 K/mm3 (130-400); RED BLOOD COUNT 3.33 M/mm3 (4.10-5.30); REDCELL DISTRIBUTION WIDTH-CV 18.1 % (11.5-14.5)
[2023-08-11 07:47] LABS: HEMATOCRIT 29.6 % (37.0-47.0); HEMOGLOBIN 9.6 g/dl (12.5-16.0); MEAN CORPUSCULAR HEMOGLOBIN 29 pg (27-31)
[2023-08-11 07:49] LABS: CALCIUM 9.3 mg/dL (8.4-10.2); CREATININE, serum 0.77 mg/dL (0.57-1.11); POTASSIUM 3.8 mmol/L (3.5-4.5)
[2023-08-11 08:33] LABS: ANISOCYTOSIS 2+; BAND 4 % (0-10); HYPOCHROMIA 1+; LYMPHOCYTE 10 % (20.0-51.0); NEUTROPHILS 77 % (42.0-75.2); PLATELET ESTIMATE NORMAL (NORMAL)
[2023-08-11] MEDS ORDERED: Loperamide 2 MG CAP PO PRN (09:30)
[2023-08-11] MEDS ORDERED: Loperamide 2 MG CAP PO ONE (09:30)
[2023-08-11] MEDS ORDERED: NS IV SCH (10:00)
[2023-08-11] MEDS ORDERED: WATER FOR INJECTION STERILE IV SCH (10:00)
[2023-08-11] MEDS ORDERED: AZTREONAM IV SCH ×2 (10:00)
--- NOTE | 2023-08-11 10:09 | NUR ---
Several visit attempts; Patient Indisposed, Control Officer Manager left card offering God's Blessings and Spiritual Care.
--- NOTE | 2023-08-11 10:19 | NUR ---
PATIENT SITTING UP IN RECLINER WITH AT BEDSIDE. MORNING MEDICATIONS ADMINISTERED. SHIFT ASSESSMENT COMPLETED. PATIENT DENIES ANY PAIN OR SOB. STATES SHE IS FEELING MUCH BETTER THAN WHEN SHE CAME IN. REPORTING DIARRHEA, IMMODIUM GIVEN PER eMAR. CALL LIGHT WITHIN REACH. UPDATED ON POC. WILL CONTINUE TO MONITOR.
--- NOTE | 2023-08-11 13:12 | NUR ---
certified social workers in health care and BATSHEVA student met with patient to discuss home health choice. Patient chose [facility]. secure emailed home health referral to [facility]. Discharge plan: Home with Home Health
--- NOTE | 2023-08-11 14:03 | NUR ---
handy worker was notified [facility] can accept this patient for home health upon discharge. Discharge plan: Home with [facility]
--- NOTE | 2023-08-11 21:00 | NUR ---
Patient resting in bed with family at bedside. Rates her pain at 6/10, prn pain meds given. Denies any needs at this time. Assessment complete. IV in right AC flushes easily with no complicaitons. Call light and personal items in reach. Bed in low position.
[2023-08-12 01:13] VITALS: BP_SYST 118
[2023-08-12 03:27] VITALS: BP 146/62; PULSE 95; TEMP 98.3
[2023-08-12 04:47] VITALS: BP_SYST 146
--- NOTE | 2023-08-12 06:00 | NUR ---
Patient resting in bed. Denies any pain or needs at this time. No changes over night other than IV in right AC infiltrated and new one placed in left AC. Call light and personal items in reach. Bed in low position.
[2023-08-12 07:06] VITALS: BP 117/76; PULSE 97; TEMP 98.2
[2023-08-12 09:00] VITALS: BP_SYST 117
[2023-08-12] MEDS ORDERED: LEVAQUIN 750MG750 M1 PO (09:28)
[2023-08-12] MEDS ORDERED: IPRATROPIUM BROM3 M1 IH (10:33)
--- NOTE | 2023-08-12 10:40 | NUR ---
Hospitalist notified Meat Cutter that patient will be discharged today. SW contacted Gurvinder at [facility] and faxed discharge orders.
[2023-08-12 11:00] LABS: PATHOLOGY DIFF REVIEW OK
--- NOTE | 2023-08-12 12:11 | NUR ---
Patient alert and oriented x4. No new variances noted. Activity at baseline. Tolerating food and fluids well. Denies increase in pain. Discharge packet discussed with patient and family including new/changed medications, follow-up appointment, work note, and education packets. Patient verbalized understanding. IV discontinued to right AC with no complications. Telemetry off. Patient escorted out by staff and family via wheelchair.
== END 2023-08-12 12:00 | disposition home health service (06) | DRG 193 ==
LOC: COL.ER 01:30 → MEDICAL 02:51 → COL.ER 02:51 → MEDICAL 02:51
PROVIDERS: Emergency Medicine; Internal Medicine; Internal Medicine Infectious Disease; Physician Assistant; ADMIT Internal Medicine
DX: J18.9 Pneumonia, unspecified organism (principal); J96.01 Acute respiratory failure with hypoxia; C81.90 Hodgkin lymphoma, unspecified, unspecified site; J45.909 Unspecified asthma, uncomplicated; G47.33 Obstructive sleep apnea (adult) (pediatric); E11.649 Type 2 diabetes mellitus with hypoglycemia without coma; Z79.4 Long term (current) use of insulin; G89.29 Other chronic pain; D64.9 Anemia, unspecified; R79.89 Other specified abnormal findings of blood chemistry; R19.7 Diarrhea, unspecified; I10 Essential (primary) hypertension; R30.0 Dysuria
CPT/HCPCS: OP; J0457; J0692; J0780; J1815; J1956; J2930; J3370; J7050; J7120; J7512; Q3014; Q9967